=== PATIENT | female | born 1980 | race Caucasian/White ===

== ENCOUNTER 2017-03-14 14:49 | Emergency (ER) | payer MEDICAID ==
[2017-03-14 14:58] VITALS: RESP 16; TEMP 98.8
--- NOTE | 2017-03-14 15:22 | EDPHY ---
H & P Time Seen by Provider: 03/14/17 15:21 HPI/ROS: HPI: This is a 36-year-old female who presents with Chief Complaint: Vaginal bleeding Location: vaginal Quality: Bleeding Duration: Since yesterday Signs and Symptoms: + vaginal bleeding passing large amount of clots, + lower abdominal cramping, no dysuria, no nausea, no vomiting, no fevers, no vaginal discharge Timing: Sudden, worsening Severity: Moderate Context: ; LMP: 01/24/17. 7 weeks . Patient sexual intercourse approximately 1 days ago; denied dyspareunia; noted a small amount of vaginal spotting g at that time. Last night the bleeding increased with large amount of bleeding and passage of clots and then approximately 30 minutes to 1 hour later lower abdominal cramping started. Patient called [facility] to [facility] today to be seen and was unable to get an appointment so advised to come to the ER. She is unsure of her blood type. Denies any injury/Trauma Modifying Factors: Comment: ROS: Eyes: No blurred vision Respiratory: No shortness of breath, no cough Cardiovascular: No chest pain Gastrointestinal: No nausea, no vomiting no diarrhea Genitourinary: No dysuria Extremities: No myalgias Neurologic: No weakness, no numbness Skin: No rashes Hematologic: No bruising, no bleeding MEDICAL/SURGICAL HISTORY: Generally healthy. Denies any surgical history. Social History: . Smoking Status: Former smoker Physical Exam: CONSTITUTIONAL: Polite and cooperative adult white female who is appropriately tearful, awake and alert, no obvious distress HEENT: Atraumatic and normocephalic, PERRL, EOMI. Tympanic membranes clear. Oropharynx clear, no exudate and moist pink mucosa. Airway patent. No lymphadenopathy. No meningismus. Cardiovascular: Normal S1/S2, regular rate, regular rhythm, without murmur rub or gallop. PULMONARY/CHEST: Symmetrical and nontender. Clear to auscultation bilaterally Good air movement. No accessory muscle usage. ABDOMEN: Soft, nondistended, mild lower abdominal tenderness, no rebound, no guarding, no peritoneal signs, no masses or organomegaly. No CVAT. PELVIC: normal external genitalia, normal cervix, cervical os open, no cervical motion tenderness, no adnexal mass, no discharge, moderate bleeding. The exam was performed with a big data platform architect. EXTREMITIES: 2/2 pulses, no deformities, no clubbing, no cyanosis or edema. NEUROLOGICAL: no focal neuro deficits. GCS 15. SKIN: Warm and dry, no erythema. no rash. Good capillary refill. Constitutional: Initial Vital Signs Temperature (C) 37.1 C 03/14/17 14:50 Heart Rate 85 03/14/17 14:50 Respiratory Rate 16 03/14/17 14:50 Blood Pressure 125/79 H 03/14/17 14:50 O2 Sat (%) 97 03/14/17 14:50 O2 Delivery Mode Room Air Allergies/Adverse Reactions: No Known Allergies Allergy (Verified 03/14/17 14:54) Home Medications: Medication Instructions Recorded Vit27&Calcium/Iron/FA 1 each PO 03/14/17 [] Medical Decision Making ED Course/Re-evaluation: Urinalysis, labs, Ob ultrasound High concern for threatened spontaneous miscarriage; discussed this with patient and physical exam findings and ultrasound consistent with this unfortunate event Beta hcg ~ 2700 Blood type is O-positive 1700: Called by Radiology and ultrasound does not show an ectopic does not show free fluid in does not show gestational sac; suspect spontaneous Keep follow-up appointment with OB in 2 days Differential Diagnosis: Abdominal pain in a female including but not limited to ovarian cyst, pelvic inflammatory disease, ovarian torsion, urinary tract infection, miscarriage, ectopic and appendicitis. - Data Points Laboratory Results: Laboratory Results 03/14/17 15:20 03/14/17 03/14/17 03/14/17 15:20 15:20 15:20 WBC RBC Hgb Hct MCV MCH MCHC RDW Plt Count MPV Neut % (Auto) Lymph % (Auto) Citrus % (Auto) Eos % (Auto) Baso % (Auto) Nucleat RBC Rel Count Absolute Neuts (auto) Absolute Lymphs (auto) Absolute Monos (auto) Absolute Eos (auto) Absolute Basos (auto) Absolute Nucleated RBC Immature Gran % Immature Gran # Beta HCG, Qual POSITIVE Beta HCG, Quant 2790.50 mIU/mL H mIU/mL (0.00-4.83) Patient ABO/Rh O POSITIVE 03/14/17 15:20 WBC 11.48 10^3/uL H 10^3/uL (3.80-9.50) RBC 4.29 10^6/uL 10^6/uL (4.18-5.33) Hgb 14.0 g/dL g/dL (12.6-16.3) Hct 39.5 % % (38.0-47.0) MCV 92.1 fL fL (81.5-99.8) MCH 32.6 pg pg (27.9-34.1) MCHC 35.4 g/dL g/dL (32.4-36.7) RDW 11.5 % % (11.5-15.2) Plt Count 305 10^3/uL 10^3/uL (150-400) MPV 8.7 fL fL (8.7-11.7) Neut % (Auto) 72.5 % % (39.3-74.2) Lymph % (Auto) 20.2 % % (15.0-45.0) Citrus % (Auto) 5.7 % % (4.5-13.0) Eos % (Auto) 1.0 % % (0.6-7.6) Baso % (Auto) 0.3 % % (0.3-1.7) Nucleat RBC Rel Count 0.0 % % (0.0-0.2) Absolute Neuts (auto) 8.33 10^3/uL H 10^3/uL (1.70-6.50) Absolute Lymphs (auto) 2.32 10^3/uL 10^3/uL (1.00-3.00) Absolute Monos (auto) 0.65 10^3/uL 10^3/uL (0.30-0.80) Absolute Eos (auto) 0.11 10^3/uL 10^3/uL (0.03-0.40) Absolute Basos (auto) 0.03 10^3/uL 10^3/uL (0.02-0.10) Absolute Nucleated RBC 0.00 10^3/uL 10^3/uL (0-0.01) Immature Gran % 0.3 % % (0.0-1.1) Immature Gran # 0.04 10^3/uL 10^3/uL (0.00-0.10) Beta HCG, Qual Beta HCG, Quant Patient ABO/Rh Departure - Departure Disposition: Home, Routine, Self-Care Clinical Impression: Spontaneous miscarriage Clinical Impression: (Ruled Out): Threatened miscarriage in early Condition: Good Instructions: Miscarriage (ED) Additional Instructions: Do not put anything your vagina for the next 2 weeks. Use sanitary napkins as needed for vaginal bleeding. Keep follow-up appointment with carburizer on Tuesday as previously scheduled. Referrals: Carey Balderas MD [Medical Doctor] - 1-2 days without fail
[2017-03-14 15:37] LABS: % IMMATURE GRANULYOCYTES 0.3 % (0.0-1.1); ABSOLUTE IMMATURE GRANULOCYTES 0.04 10^3/uL (0.00-0.10); ADD DIFF? NO; ADD MORPH? NO; ADD SCAN? NO; ATYPICAL LYMPHOCYTE FLAG 0 (0-99); FRAGMENT RBC FLAG 20 (0-99); HEMATOCRIT 39.5 % (38.0-47.0); LEFT SHIFT FLG 0 (0-99); LIPEMIA HEMOLYSIS FLAG 90 (0-99); MEAN CELL HEMOGLOBIN 32.6 pg (27.9-34.1); MEAN CELL HEMOGLOBIN CONCENTR. 35.4 g/dL (32.4-36.7); MEAN CELL VOLUME 92.1 fL (81.5-99.8); MEAN PLATELET VOLUME 8.7 fL (8.7-11.7); PLATELET CLUMPS FLAG 10 (0-99); PLATELET COUNT 305 10^3/uL (150-400); RED BLOOD CELL COUNT 4.29 10^6/uL (4.18-5.33); RED CELL DISTRIBUTION WIDTH 11.5 % (11.5-15.2)
[2017-03-14 17:08] VITALS: BP 115/76; PULSE 76; O2SAT 96
== END 2017-03-14 17:19 | disposition home or self-care (01) ==
DX: O03.9 Complete or unspecified spontaneous abortion without complication (principal); Z3A.01 Less than 8 weeks gestation of pregnancy; Z87.891 Personal history of nicotine dependence